=== PATIENT | female | born 1980 | race Hispanic/Latino ===

== ENCOUNTER 2021-10-02 12:00 | Emergency (ER) | payer MEDICAID, SELFPAY ==
--- NOTE | ~2021-10-02 | XR_ITS ---
EXAMINATION: XR chest 2V DATE: 10/02/2021 12:54 INDICATION: Cough. TECHNIQUE: Frontal and lateral views of the chest were obtained. COMPARISON: None. FINDINGS: The chest demonstrates clear lungs without pneumonia, pleural effusion, or pneumothorax. Th e heart size is normal. IMPRESSION: 1. No acute cardiopulmonary disease. Reviewed, dictated and finalized at location A.
[2021-10-02 12:25] VITALS: BP 140/81; PULSE 87; RESP 16; TEMP 37.7; O2SAT 99
--- NOTE | 2021-10-02 12:46 | ED.URI ---
HPI - URI/Sore Throat General Chief Complaint: Upper Respiratory Infection Stated Complaint: Cough,Congestion Time Seen by Provider: 10/02/21 12:46 Source: patient Mode of arrival: ambulatory Limitations: no limitations History of Present Illness HPI Narrative: Kait Sheriff is a 41-year-old female with no PMH who comes with a productive cough and green sputum, subjective fever, not feeling well x10 days. She currently seems to be sweating, looks pale Related Data Home Medications Medication Instructions Recorded Confirmed lisinopril 10 mg PO DAILY 10/02/21 10/02/21 Allergies Allergy/AdvReac Type Severity Reaction Status Date / Time No Known Allergies Allergy Verified 10/02/21 12:53 Review of Systems Review of Systems: CONSTITUTIONAL: Denies fever, chills, sweats. EYES: Denies visual changes, redness, discharge. ENT: Denies rhinorrhea,has congestion, sore throat, otalgia. CARDIOVASCULAR: Denies chest pain, palpitations, edema. RESPIRATORY: Denies dyspnea, wheezing,has cough that is productive, green in color GASTROINTESTINAL: Denies abdominal pain, nausea, vomiting, diarrhea. GENITOURINARY: Denies dysuria, hematuria, abnormal discharge SKIN: Denies rash or itching. NEUROLOGIC: Denies numbness, or focal weakness. PSYCHIATRIC: Denies anxiety or depression. [facility] Past Medical History Medical History HTN (hypertension) Comments At time of signature, I agree with nursing past medical, surgical, social and family history. There is no relevant family history pertinent to the presenting complaint. Exam Narrative: GENERAL: This is a well-nourished, well-developed patient, in mild distress. Mild elevation of temperature to 99 9 HEAD: normocephalic, atraumatic. EYES: . Sclera clear/white. Vision is grossly intact. EARS: External ears normal, auditory canals erythema and without drainage, . Hearing grossly intact. NOSE: External nose normal without nasal discharge, nares without redness, has rhinorrhea. THROAT: Mucous membranes moist, posterior pharynx erythema NECK: Neck supple, non-tender CARDIOVASCULAR: Regular rate and rhythm without murmurs, gallops, or rubs. RESPIRATORY: Clear to auscultation. Breath sounds diminished because when takes deep breath starts to cough; cough is dry and coarse GASTROINTESTINAL: Abdomen soft, non-tender, SKIN: warm, intact with no suspicious lesions or rash, good texture and turgor. NEURO: awake, alert, and oriented to person, place and time. There were no obvious focal neurologic abnormalities. Steady gait EXTREMITIES: Normal range of motion. BACK: Nontender without deformity Course Course Emergency Course: Patient comes with 10 days of cough with green mucus, fever, feeling well Chest x-ray Done César Lucas prednisone Level of Care: Express Care Visit Vital Signs Vital signs: Vital Signs Temperature 99.9 F H 10/02/21 12:25 Pulse Rate 87 10/02/21 12:25 Respiratory Rate 16 10/02/21 12:25 Blood Pressure 140/81 10/02/21 12:25 Pulse Oximetry 99 10/02/21 12:25 Temperature 99.9 F H 10/02/21 12:25 Pulse Rate 87 10/02/21 12:25 Respiratory Rate 16 10/02/21 12:25 Blood Pressure 140/81 10/02/21 12:25 Pulse Oximetry 99 10/02/21 12:25 MDM - URI/Sore Throat Differential Diagnosis Differential diagnosis: Likely upper respiratory infection, sinusitis, viral infection, bronchitis, pharyngitis and other Critical Care Time Critical Care Time Critical Care Time: No Discharge Plan Discharge Clinical Impression: Bronchitis Patient Disposition: Home, Self-Care Condition: Stable Instructions: Acute Bronchitis (ED) Additional Instructions: Push fluids Take medications as prescribed Take Zyrtec in the morning Prescriptions: New benzonatate 200 mg capsule 200 mg PO TID PRN (Reason: cough) Qty: 30 RF: 0 prednisone 20 mg tablet 40 mg PO DAILY Qty:
== END 2021-10-02 13:24 | disposition home or self-care (01) ==
PROVIDERS: Emergency Provider Nurse Practitioner
DX: J40 Bronchitis, not specified as acute or chronic (principal); I10 Essential (primary) hypertension
CPT/HCPCS: 71046; 99203; G0463